=== PATIENT | female | born 1975 | race Hispanic/Latino ===

== ENCOUNTER 2025-05-02 22:12 | Emergency (ER) | payer SELFPAY ==
[~2025-05-02] VITALS: Ht 160 cm; Wt 79.4 kg
--- NOTE | 2025-05-02 22:50 | NUR ---
assumed pt care at this time
--- NOTE | 2025-05-02 22:51 | NUR ---
patient at ultrasound at this time
[2025-05-02 23:07] LABS: RAPID GROUP A STREP negative (NEGATIVE)
[2025-05-02 23:08] LABS: SARS-CoV-2, RNA, NAAT NEGATIVE SARS CoV-2 (NEGATIVE)
[2025-05-02 23:15] LABS: INFLUENZA TYPE A Negative For Type A (NEGATIVE); INFLUENZA TYPE B Negative For Type B (NEGATIVE)
[2025-05-02 23:25] LABS: IMMATURE GRANULOCYTE ABSOLUTE 0.02 K/uL (0-1); NUCLEATED RED BLOOD CELLS 0.0 % (0.0-0.19); PLATELET COUNT (AUTO) 283 K/uL (130-400); RED BLOOD CELL COUNT(AUTO) 4.13 MIL/uL (4.00-5.50); RED CELL DISTRIBUTION WIDTH 14.7 % (11.0-15.5); WHITE BLOOD COUNT (AUTO) 6.3 K/uL (4.8-10.8)
[2025-05-02] MEDS: 0.9%NACL 1000ML 1,000 ML IV ONE (23:28)
[2025-05-02 23:36] LABS: CREATININE 0.8 mg/dL (0.5-1.0); GLOMERULAR FILTR. RATE CALC 91.0 mL/min (>90); GLUCOSE,RANDOM 97.0 mg/dL (70-105); SODIUM SERUM 136.0 mmol/L (136-145); UREA NITROGEN, BLOOD 5.0 mg/dL (7-18)
--- NOTE | 2025-05-02 23:59 | HMCIMG ---
EXAMINATION: OB ULTRASOUND LESS THAN 14 WEEKS. CLINICAL HISTORY: Amenorrhea. Abdominal pain. COMPARISON: None. TECHNIQUE: Grayscale and color ultrasound images were obtained utilizing a transabdominal transducer. FINDINGS: LMP: 03/16/2025, 6 weeks and 5 days. The uterus measures 9.2 x 5.1 x 7.7 cm. The gestation sac diameter measures 2.0 x 1.7 x 1.8 cm. There is a single, live intrauterine with an approximate gestational age of 7 weeks and 0 days as per the crown-rump length, which measures 0.9 cm. There is a subchorionic hemorrhage that measures 0.9 x 0.6 cm. Internal Os closed. EDC (by LMP): 12/21/2025 and EDC (by measurement): 12/19/2025. The right ovary is normal in caliber and measures 2.2 x 2.0 x 1.6 cm. The left ovary is obscured by overlying bowel gas. There is no free fluid within the pelvis. IMPRESSION: Live intrauterine with an approximate gestational age of 7 weeks and 0 days. heart activity is identified on color Doppler and grayscale. Unable to measure due to the patient's increased shivering and coughing. Recommend follow-up ultrasound. Small subchorionic hemorrhage. /[place]
--- NOTE | 2025-05-03 00:08 | ERN ---
ED Note History of Present Illness Stated Complaint: FEVER, COUGH, BODY ACHES, SORE THROAT, 7WKS PREG Chief Complaint: Flu Symptoms Time Seen by MD: 22:18 Time Seen by Midlevel: 22:18 Dictation: The patient is a 49-year-old female with a history of breast augmentation who reports being seven weeks who presents to the emergency department with complaints of dry cough, fever, chills, body aches, nausea onset yesterday. Patient reports that today she had a sharp lower abdominal pain that lasted only a few sec. Denies any vaginal bleeding or discharge. Denies any urinary discomfort. Allergies: Coded Allergies: codeine (Unverified Allergy, Severe, HIVES, 05/02/25) Past Medical History Past Medical History: No Pertinent History Surgical History: Other Surgical History Other: BREAST AUGMENTATION, TUMMY TUCK, TUBAL LIGATION, TUBAL LIGATION REVERSAL : 5 Para: 4 Aborts: 0 RN Note Reviewed/Agreed w/PFSH: Yes Review of System Dictation Constitutional: Negative for chills, and weight loss positive for fever, body aches Eyes: Negative for injury, pain,redness, and discharge ENT: Negative for injury,pain or swelling Cardiovascular: Negative for chest pain, palpitations, and edema Respiratory: Negative for shortness of breath,and wheezing, positive for cough Abdomen/GI: Negative for , vomiting, diarrhea, and constipation positive for abdominal pain, nausea Back: Negative for injury and pain : Negative for injury, bleeding and discharge MS/Extremity: Negative for injury and deformity Skin: Negative for rash, and discoloration Neuro: Negative for headache, weakness, numbness, tingling, and seizure Psych: Negative for suicide ideation, homicidal ideation, and hallucinations Initial Vital Sign VS Vital Signs Date Time Temp Pulse Resp B/P (MAP) Pulse Ox O2 Delivery O2 Flow Rate FiO2 05/02/25 22:16 101.1 106 18 120/79 99 Room Air 0 05/02/25 23:21 21 Physical Exam Dictation Vital Signs reviewed General Appearance: Alert, oriented x 3, no acute distress, well developed, nourished. Head and Face: non-traumatic. Eyes: PERRL, pink conjunctivas, eyelid no trauma, anterior chamber with arcus senilis. Ears: Pinnas intact and no signs of trauma or erythema ear canals clear and no discharge TM no erythema Nose: No discharge, no bleeding. Oropharynx: Mouth normal, tongue pink. pharynx clear,no erythema, tonsils no exudates, no abscesses noted, mucous membrane moist Neck: Supple, non-tender, no thyromegaly, no masses, no JVD, no bruits Breast:Deferred Chest:No tenderness, no crepitus, no paradoxical movement, no retractions Lungs:Clear, well-ventilated, symmetric, no rales, no wheezing, no rhonchi, no stridor, good breath sounds bilaterally Heart: Regular rate, regular rhythm, no murmur, no gallops Vascular: no peripheral edema, Abdomen: Soft, positive bowel sounds, nondistended, no guarding, nontender, no rebound, no masses no hepatomegaly, no splenomegaly, no Diertich's sign, no hernias. Rectal: Deferred Genital: Deferred Neurological: Normal speech, motor function intact, sensory function intact Musculoskeletal: Neck nontender, full range of motion, back nontender, full range of motion, Extremities: nontender, full range of motion Skin: Color pink, dry, no turgor, no rash, no lacerations, no abrasions, no contusions. Lymphatic: Deferred Results (Laboratory/Radiology) Laboratory/Radiology Laboratory Tests Test 05/02/25 22:30 05/02/25 23:16 05/03/25 00:24 Influenza Type A Antigen Negative For Type A Influenza Type B Antigen Negative For Type B SARS-CoV-2, RNA, NAAT NEGATIVE SARS CoV-2 Group A Streptococcus Rapid negative (NEGATIVE) White Blood Count 6.3 K/uL (4.8-10.8) Red Blood Count 4.13 MIL/uL (4.00-5.50) Hemoglobin 12.9 g/dL (12.0-16.0) Hematocrit 38.8 % (36-48) Mean Corpuscular Volume 93.9 fL (79-99) Mean Corpuscular Hemoglobin 31.2 pg (27.0-33.0) Mean Corpuscular Hemoglobin Concent 33.2 g/dL (32.0-36.0) Red Cell Distribution Width 14.7 % (11.0-15.5) Platelet Count 283 K/uL (130-400) Mean Platelet Volume 9.3 fL (7.5-10.5) Immature Granulocyte % (Auto) 0.3 % (0-1) Neutrophils (%) (Auto) 74.7 % (40.0-77.0) Lymphocytes (%) (Auto) 10.3 % (21.0-51.0) L Monocytes (%) (Auto) 12.5 % (3.0-13.0) Eosinophils (%) (Auto) 1.4 % (0.0-8.0) Basophils (%) (Auto) 0.8 % (0.0-5.0) Neutrophils # (Auto) 4.7 K/uL (1.8-7.7) Lymphocytes # (Auto) 0.7 K/uL (1.0-4.8) L Monocytes # (Auto) 0.8 K/uL (0.1-1.0) Eosinophils # (Auto) 0.09 K/uL (0.00-0.70) Basophils # (Auto) 0.05 K/uL (0.00-0.20) Absolute Immature Granulocyte (auto 0.02 K/uL (0-1) Nucleated Red Blood Cells 0.0 % (0.0-0.19) Sodium Level 136 mmol/L (136-145) Potassium Level 3.9 mmol/L (3.5-5.1) Chloride Level 104 mmol/L (101-111) Carbon Dioxide Level 25 mmol/L (21-32) Blood Urea Nitrogen 5 mg/dL (7-18) L Creatinine 0.8 mg/dL (0.5-1.0) Glomerular Filtration Rate Calc 91 mL/min (>90) Random Glucose 97 mg/dL (70-105) Total Calcium 8.1 mg/dL (8.5-10.1) L Human Chorionic Gonadotropin, Quant 40027 mIU/mL (0-5) H Urine Color COLORLESS (YELLOW) Urine Appearance CLEAR (CLEAR) Urine pH 7.0 (5.0-8.0) Urine Specific [place] 1.008 (1.001-1.031) Urine Protein NEGATIVE mg/dL (NEGATIVE) Urine Glucose (UA) NEGATIVE mg/dL (NEGATIVE) Urine Ketones NEGATIVE mg/dL (NEGATIVE) Urine Occult Blood SMALL (NEGATIVE) H Urine Nitrate NEGATIVE (NEGATIVE) Urine Bilirubin NEGATIVE mg/dL (NEGATIVE) Urine Urobilinogen 0.2 mg/dL (0.2-1.0) Urine Leukocyte Esterase NEGATIVE Annelise/uL Urine RBC 2-5 /HPF (0-1) H Urine WBC 0-1 /HPF (0-1) Urine Squamous Epithelial Cells RARE /HPF (0-2) Urine Bacteria None /HPF (None Seen) REASON: abd pain ORDERING PHYSICIAN: ARIANNE HINOJOSA PROCEDURE: OB <14 - US OB <14 WEEKS EXAMINATION: OB ULTRASOUND LESS THAN 14 WEEKS. CLINICAL HISTORY: Amenorrhea. Abdominal pain. COMPARISON: None. TECHNIQUE: Grayscale and color ultrasound images were obtained utilizing a transabdominal transducer. FINDINGS: LMP: 03/16/2025, 6 weeks and 5 days. The uterus measures 9.2 x 5.1 x 7.7 cm. The gestation sac diameter measures 2.0 x 1.7 x 1.8 cm. There is a single, live intrauterine with an approximate gestational age of 7 weeks and 0 days as per the crown-rump length, which measures 0.9 cm. There is a subchorionic hemorrhage that measures 0.9 x 0.6 cm. Internal Os closed. EDC (by LMP): 12/21/2025 and EDC (by measurement): 12/19/2025. The right ovary is normal in caliber and measures 2.2 x 2.0 x 1.6 cm. The left ovary is obscured by overlying bowel gas. There is no free fluid within the pelvis. IMPRESSION: Live intrauterine with an approximate gestational age of 7 weeks and 0 days. heart activity is identified on color Doppler and grayscale. Unable to measure due to the patient's increased shivering and coughing. Recommend follow-up ultrasound. Small subchorionic hemorrhage. /[facility] Reviewed?: Yes ED Course ED Course Orders Procedure Category Date Status Time Influenza Type A & B, LAB 05/02/25 Complete Rapid 22:26 Covid Rna Naat LAB 05/02/25 Complete 22:26 Rapid (Group A Strep) LAB 05/02/25 Complete 22:26 Urinalysis Profile LAB 05/02/25 Complete 22:26 Cbc With Differential LAB 05/02/25 Complete 22:34 Hcg,Quantitative LAB 05/02/25 Complete 22:34 Us Ob <14 Weeks US 05/02/25 Resulted 22:34 0.9%Nacl 1000ml (Ns PHA 05/02/25 Complete 1000ml) 23:00 Basic Metabolic Panel LAB 05/02/25 Complete 22:34 Acetaminophen 500mg PHA 05/02/25 Complete Tab (Tylenol 500mg T 23:00 Current Medications Medications (Trade) Dose Ordered Sig/Maggie Route PRN Reason Start Time Stop Time Status Last Admin Dose Admin Acetaminophen (TYLenol 500MG TAB) 1,000 mg ONCE ONCE PO 05/02/25 23:00 05/02/25 23:01 DC 05/02/25 23:28 Sodium Chloride 1,000 ml @ 0 mls/hr ONCE ONCE IV 05/02/25 23:00 05/02/25 23:01 DC 05/02/25 23:28 Vital Signs Date Time Temp Pulse Resp B/P (MAP) Pulse Ox O2 Delivery O2 Flow Rate FiO2 05/02/25 23:28 102.4 05/02/25 23:21 102.4 104 18 127/87 99 Room Air* 0 21 05/02/25 22:16 101.1 106 18 120/79 99 Room Air 0 Medical Decision Making MDM The patient is a 49-year-old female with a history of breast augmentation who reports being seven weeks who presents to the emergency department with complaints of dry cough, fever, chills, body aches, nausea onset yesterday. Patient reports that today she had a sharp lower abdominal pain that lasted only a few sec. Denies any vaginal bleeding or discharge. Denies any urinary discomfort. CBC showed no leukocytosis, no anemia, chemistry showed mild hypocalcemia, normal renal function serology was negative. Urinalysis unremarkable. Ultr asound revealed a small subchorionic hemorrhage, intrauterine but unable to calculate heart rate. Patient refused x-ray. Risks and benefits discussed with the patient. Patient with clear lung sounds otherwise patient in no acute distress, nontoxic appearance we will be discharged to follow up with PCP. Differential diagnosis: UTI, upper respiratory infection, dehydration Need for hospitalization: Patient does not meet criteria for hospitalization. There are no social concerns with this patient. DX & DISP Disposition: Discharge Departure Impression: Primary Impression: Viral URI with cough Additional Impressions: Subchorionic hemorrhage, 7 weeks gestation of Condition: Stable Additional Instructions: Your labs were unremarkable. Your ultrasound showed a small subchorionic hemorrhage. You need to have plenty of bed rest no heavy lifting no strenuous exercise no intercourse. Follow up with your OBGYN i your primary doctor. If anything worsens please return to ER. FOLLOW-UP WITH PRIMARY CARE PROVIDER IN 1 TO 2 DAYS. TAKE MEDICATIONS DIRECTED HERE IN THE EMERGENCY ROOM. OKAY TO CONTINUE HOME MEDICATIONS UNLESS OTHERWISE DISCUSSED DURING YOUR VISIT IN THE EMERGENCY ROOM TODAY. RETURN TO YOUR NEAREST EMERGENCY ROOM IF SYMPTOMS WORSEN OR IF THERE IS NO IMPROVEMENT. CALL 911 IF YOU NEED IMMEDIATE ASSISTANCE. TAKE TYLENOL [id number] NEEDED AND IF NO CONTRAINDICATIONS ARE PRESENT. INCREASE ORAL HYDRATION. A WOUND CULTURE OR URINE CULTURE WAS ORDERED HERE IN THE EMERGENCY ROOM DEPARTMENT PLEASE FOLLOW-UP WITH PRIMARY CARE PROVIDER AND ADVISE THEM TO GET REPEAT PORTS FROM OUR FACILITY. IF YOU HAD ANY AMBREEN WRAP/SPLINTS THAT WERE APPLIED HERE, PLEASE DO NOT REMOVE THEM UNTIL YOU SEE YOUR PRIMARY CARE OR SPECIALTY. Time of Disposition: 00:58 I have reviewed the case, and I agree with, Diagnosis and Plan ARIANNE HINOJOSA May 03, 2025 00:08
[2025-05-03 00:32] LABS: APPEARANCE,URINE CLEAR (CLEAR); GLUCOSE, URINE (UA) NEGATIVE (NEGATIVE); LEUKOCYTE ESTERASE ,URINE NEGATIVE Leu/uL (NEGATIVE); NITRATE,URINE NEGATIVE (NEGATIVE); OCCULT BLOOD,URINE SMALL (NEGATIVE)
[2025-05-03 00:34] LABS: ADD UA MICROSCOPIC YES
[2025-05-03 00:36] LABS: SQUAMOUS EPITHELIAL CELL,UR RARE /HPF (0-2)
[2025-05-03 01:22] VITALS: BP 114/67; PULSE 89; RESP 18; TEMP 100.2; O2SAT 99
== END 2025-05-03 01:23 | disposition home or self-care (01) ==
LOC: EDH 22:17
DX: O99.511 Diseases of the respiratory system complicating pregnancy, first trimester (principal); J06.9 Acute upper respiratory infection, unspecified; O20.8 Other hemorrhage in early pregnancy; Z88.5 Allergy status to narcotic agent; Z3A.01 Less than 8 weeks gestation of pregnancy; Z20.822 Contact with and (suspected) exposure to COVID-19
CPT/HCPCS: 99284; 76801; 87635; 80048; 84702; 85025; 87880; 87804 ×2; 36415; 81001; J7030